=== PATIENT | female | born 2000 | race Caucasian/White ===

== ENCOUNTER → 2023-11-01 18:10 | Outpatient (REF) | payer BC, SELFPAY | LOC: MRI 18:10 | PROVIDERS: ATTENDING PHYSICIAN Physician Assistant Surgical; FAMILY PHYSICIAN Nurse Practitioner Family | DX: M54.12 Radiculopathy, cervical region (principal); M54.2 Cervicalgia; M50.220 Other cervical disc displacement, mid-cervical region, unspecified level | CPT/HCPCS: 72141 ==

== ENCOUNTER → 2025-03-12 16:12 | Outpatient (REF) | payer BC, SELFPAY | LOC: RAD 16:12 | PROVIDERS: ATTENDING PHYSICIAN Internal Medicine Rheumatology; FAMILY PHYSICIAN Nurse Practitioner Family | DX: L40.50 Arthropathic psoriasis, unspecified (principal); M06.00 Rheumatoid arthritis without rheumatoid factor, unspecified site; M54.2 Cervicalgia; M54.50 Low back pain, unspecified; M79.18 Myalgia, other site; M79.7 Fibromyalgia; Z51.81 Encounter for therapeutic drug level monitoring | CPT/HCPCS: 72110; 72202 ==